=== PATIENT | male | born 1960 | race American Indian/Alaskan Native ===

== ENCOUNTER 2021-07-20 03:29 | Emergency (ER) | payer OTHER ==
[2021-07-20] MEDS ORDERED: IBUPROFEN 400 MG TAB PO ONE (04:05)
[2021-07-20] MEDS ORDERED: ACETAMINOPHEN 325 MG TAB PO ONE (04:05)
[2021-07-20] MEDS ORDERED: TETANUS,DIPH,PERTUSS(ACELL) VACCINE 0.5 ML SYRINGE IM ONE (04:05)
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
--- NOTE | 2021-07-20 05:56 | XRay Report ---
Left hand, 3 views HISTORY: Left hand pain after injury COMPARISON: None FINDINGS: No acute fracture or malalignment. Corticated ossific density at the dorsal aspect of the h and, likely reflecting remote triquetral fracture. Mild to moderate scattered osteoarthritis, greates t at the thumb CMC joint. No focal soft tissue abnormality. IMPRESSION: No acute osseous findings of the left hand. Signer Name: Jerome Cook MD Signed: 07/20/2021 5:52 AM Workstation Name: [id number]
[2021-07-20 06:13] VITALS: BP 160/87
== END 2021-07-20 06:14 | disposition home or self-care (01) ==
LOC: ED 03:29
DX: S60.512A Abrasion of left hand, initial encounter (principal); R03.0 Elevated blood-pressure reading, without diagnosis of hypertension; V87.7XXA Person injured in collision between other specified motor vehicles (traffic), initial encounter; Y93.89 Activity, other specified; Y92.488 Other paved roadways as the place of occurrence of the external cause; Y99.8 Other external cause status
CPT/HCPCS: 90471; 90715; 99283